=== PATIENT | male | born 1995 | race Caucasian/White ===

== ENCOUNTER 2021-01-30 21:00 | Emergency (ER) | payer MEDICAID ==
[~2021-01-30] VITALS: Ht 180.3 cm; Wt 109.1 kg
[2021-01-30 21:07] VITALS: BP 107/53; Ht 180.3 cm; Wt 109.1 kg
[2021-01-30] MEDS ORDERED: ADVIL200 MG PO (21:08)
[2021-01-30 21:40] LABS: BASOPHILS 0.1 % (0-2); EOSINOPHILS 0.4 % (0-7); HEMATOCRIT 41.1 % (42.0-54.0); IMMATURE GRANULOCYTES 0.3 % (0-5); LYMPHOCYTE ABS# 1.53 10x3/uL (1.32-3.57); LYMPHOCYTES 11.1 % (15-50); MCH 29.8 pg (26.0-34.0); MCHC 34.1 g/dL (31.0-37.0); MCV 87.4 fL (80.0-100.0); MEAN PLATELET VOLUME 10.4 fL (7.4-10.4); MONOCYTES 10.4 % (2-11); NEUTROPHIL ABS# 10.72 10x3/uL (1.78-5.38); NEUTROPHILS 77.7 % (40-80); PLATELET COUNT 248 10x3/uL (130-400); RDW 12.1 % (11.5-14.5); WBC 13.8 10x3/uL (4.8-10.8)
[2021-01-30 21:53] LABS: CALC OSMOLALITY 272 mosm/kg (275-300); CALCIUM 8.9 mg/dL (8.5-10.1); CHLORIDE - SERUM 102 mmol/L (98-107); CREATININE - SERUM 0.9 mg/dL (0.6-1.3); GLUCOSE 103 mg/dL (74-106); POTASSIUM - SERUM 3.2 mmol/L (3.5-5.1); SODIUM 137 mmol/L (136-145); UREA NITROGEN 10 mg/dL (7-18); eGFR NON AFRICAN AMERICAN > 90 mL/min (90-120)
[2021-01-30 21:58] LABS: ALBUMIN 3.5 g/dL (3.4-5.0); ALKALINE PHOSPHATASE 74 U/L (30-120); ALT (SGPT) 35 U/L (10-68); AMYLASE - SERUM 12 U/L (25-115); LIPASE 58 U/L (73-393); PROTEIN - SERUM 7.4 g/dL (6.4-8.2)
[2021-01-30] MEDS ORDERED: MIRALAX17 GM PO (22:58)
[2021-01-30] MEDS ORDERED: PROCTOFOAM-HC F10 G1 RC (22:58)
[2021-01-30] MEDS ORDERED: TUCKS MEDICATE1 EACH TOPICAL (22:58)
== END 2021-01-30 23:27 | disposition home or self-care (01) ==
LOC: D.ER 21:00
PROVIDERS: Family Medicine
DX: K62.89 Other specified diseases of anus and rectum (principal); K59.00 Constipation, unspecified; K56.41 Fecal impaction